=== PATIENT | female | born 1995 | race African-American/Black ===

== ENCOUNTER 2017-11-02 18:22 | Emergency (ER) | payer MEDICAID ==
[~2017-11-02] VITALS: Ht 170.2 cm; Wt 54.4 kg
[2017-11-02] MEDS ORDERED: IV NORMAL SALINE 1000 ML BAG IV ONE (19:00)
[2017-11-02 19:28] LABS: BASOPHILS % (AUTO) 0.4 % (0.0-2.0); EOSINOPHILS # (AUTO) 0.1 K/uL (0.0-0.7); EOSINOPHILS % (AUTO) 1.8 % (0.0-7.0); HEMATOCRIT 32.2 % (31.2-41.9); HEMOGLOBIN 10.1 g/dL (10.9-14.3); LYMPHOCYTES # (AUTO) 1.9 K/uL (20.0-40.0); LYMPHOCYTES % (AUTO) 27.3 % (20.5-74.5); MEAN CORPUSCULAR HEMOGLOBIN 21.3 uug (24.7-32.8); MEAN CORPUSCULAR HGB CONC 32 g/dL (32.3-35.6); MEAN CORPUSCULAR VOLUME 67.5 fL (75.5-95.3); MONOCYTES # (AUTO) 0.5 K/uL (2.0-10.0); MONOCYTES % (AUTO) 7.6 % (0-11); NEUTROPHILS # (AUTO) 4.4 K/uL (1.8-8.9); NEUTROPHILS % (AUTO) 62.9 % (31.5-64.5); PLATELET COUNT (AUTO) 342 K/uL (179-408); RED BLOOD CELL COUNT(AUTO) 4.77 MIL/uL (3.63-4.92); WHITE BLOOD COUNT (AUTO) 6.9 K/uL (3.8-11.8)
[2017-11-02 19:35] LABS: CREATININE 0.9 mg/dL (0.6-1.3); POTASSIUM 3.5 mmol/L (3.5-5.1)
[2017-11-02 19:41] LABS: BILIRUBIN,DIRECT 0.1 mg/dL (0.0-0.2); BILIRUBIN,TOTAL 0.4 mg/dL (0.2-1.0); TOTAL PROTEIN, SERUM 7.8 g/dL (6.4-8.2)
--- NOTE | 2017-11-02 20:06 | NUR ---
PT TAKEN TO CT VIA WHEELCHAIR. NO DISTRESS NOTED.
--- NOTE | 2017-11-02 20:15 | NUR ---
PT BACK FROM CT. NO ACUTE EVENTS. PT AMBULATED TO BATHROOM W/ STEADY GAIT.
[2017-11-02 20:51] LABS: *BILIRUBIN,URIN NEGATIVE (NEGATIVE); *BLOOD, URINE 1+ (NEGATIVE); *COLOR,URINE YELLOW (YELLOW); *KETONES,URINE NEGATIVE (NEGATIVE); *PROTEIN,URINE NEGATIVE (NEGATIVE); *UROBILINOGEN,URINE 0.2 E.U./dl (NORMAL); LEUKOCYTE ESTERASE ,URINE 1+ (NEGATIVE); NITRITE, URINE NEGATIVE (NEGATIVE); UGLUCOSE NEGATIVE (NEGATIVE)
[2017-11-02 20:52] LABS: *CLARITY,URINE SLIGHTLY HAZY (CLEAR)
[2017-11-02 20:53] LABS: BACTERIA,URINE MODERATE /HPF (NONE SEEN); SQUAMOUS EPITHELIAL CELL,UR MODERATE /HPF (NONE SEEN)
--- NOTE | 2017-11-02 20:54 | NUR ---
Patient discharged to home in stable conditon. Written and verbal after care instructions given. Patient verbalizes understanding of instructions. IV removed, catheter intact. Pressure applied to site, no bleeding noted. Pt ambulated from ER accompanied by boyfriend. No distress noted. Denies abd pain, N/V, dizziness, ZAMUDIO at this time. Pt took all personal belongings
[2017-11-02 20:58] VITALS: BP 112/63
== END 2017-11-02 20:58 | disposition home or self-care (01) ==
LOC: ER 18:25
DX: R10.11 Right upper quadrant pain (principal)
CPT/HCPCS: 36415; 83690; 84703; 85025; 85730; A4663

== ENCOUNTER 2017-11-16 19:07 | Emergency (ER) | payer MEDICAID ==
[~2017-11-16] VITALS: Ht 170.2 cm; Wt 54.4 kg
--- NOTE | 2017-11-16 19:52 | NUR ---
CELIA JOHNS AT BEDSIDE FOR MSE.
[2017-11-16 19:55] LABS: *URINE HCG, QUAL NEGATIVE (NEGATIVE)
--- NOTE | 2017-11-16 20:11 | NUR ---
Patient discharged to home in stable conditon. Written and verbal after care instructions given. Patient verbalizes understanding of instructions. Pt ambulated from ER accompanied by boyfriend. Pt took all personal belongings.
[2017-11-16 20:13] VITALS: BP 114/71
== END 2017-11-16 20:14 | disposition home or self-care (01) ==
LOC: ER 19:11
DX: R21 Rash and other nonspecific skin eruption (principal); F17.200 Nicotine dependence, unspecified, uncomplicated
CPT/HCPCS: 84703; 99283; A4663

== ENCOUNTER 2020-12-29 14:11 | Emergency (ER) | payer MEDICAID ==
[~2020-12-29] VITALS: Ht 170.2 cm; Wt 54.4 kg
[2020-12-29] MEDS ORDERED: AMOX-430 PO (15:06)
[2020-12-29 15:28] VITALS: BP 128/67
--- NOTE | 2020-12-29 15:28 | NUR ---
PT WAS EVALUATED BY DR KEITH. PT WAS D/C'd TO HOME. D/C INSTRUCTIONS GIVEN TO THE PT BY DR KEITH.
== END 2020-12-29 15:29 | disposition home or self-care (01) ==
LOC: ER 14:13
DX: J01.90 Acute sinusitis, unspecified (principal); F17.200 Nicotine dependence, unspecified, uncomplicated
CPT/HCPCS: A4663